=== PATIENT | male | born 1960 | race Caucasian/White ===

== ENCOUNTER → 2016-06-25 | Day surgery (SDC) | payer OTHER ==
[~2016-06-25] MED LIST: CALCIUM 600 + D1 TAB PO; COMPLETE MULTI1 EAC1 PO; DULCOLAX5 MG PO; FISH OIL 1,2001 EAC3 PO; FLONASE 0.05% N16 G1; GAS-X125 M1 PO; HYDROXYZINE HCL25 M1 PO; IBUPROFEN PO; LIPITOR20 MG PO; MIRALAX119 GM PO; NEURONTIN300 MG PO; PANTOPRAZOLE SO40 MG; PANTOPRAZOLE SO40 MG PO; PERCOCET 10/3251 TAB PO; SUPER B COMPLEX1 CAP PO; TUMS500 M1 PO
--- NOTE | ~2016-06-25 | OR ---
Unit #: [id number] #: [id number] Patient: ROMULO MICHAEL [id number] [facility]. [place], [place] [address] [id number] MR#: [id number] NAME: ROMULO MICHAEL ROOM: Date of Procedure: 06/25/2016 Admission Date: 06/25/2016 Surgeon: Lamonte Vasquez M.D. : 1960 Attending Physician: Lamotne Vasquez M.D. Primary Care Physician: Darryl Price M.D. OPERATIVE REPORT PREOPERATIVE DIAGNOSES Dysphagia and retrosternal ascending heartburn. PROCEDURES PERFORMED Upper gastrointestinal endoscopy and biopsy as well as upper gastrointestinal endoscopy and a dilation using a TTS balloon. POSTOPERATIVE DIAGNOSES 1. The patient had distal erosive esophagitis. 2. Early esophageal stricture. This was dilated using an 18- to -20 mm TTS balloon. 3. 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 4. A small hiatus hernia. 5. Mild prepyloric antral gastritis. Biopsies were obtained from the antrum for CLOtest. 6. Rest of the examination up to third part of the duodenum was normal. 7. In addition, the patient also noted to have multiple gastric polyps, two of which were removed using biopsy forceps and sent for histology. RECOMMENDATIONS The patient is advised to increase the dose of pantoprazole 40 mg p.o. b.i.d. He will be followed up in the office in 3 months' time. SEDATION USED MAC. DESCRIPTION OF PROCEDURE Following detailed explanation of potential risks and complications of an upper endoscopy, namely perforation, bleeding, and complication related to sedation, the patient was brought to GI lab and laid in the left lateral decubitus position. Lubricated tip of the Olympus video upper endoscope was passed through the bite block into the proximal esophagus under direct vision. The entire esophageal mucosa was examined. The patient was noted to have evidence of distal erosive esophagitis along with a short segment of Benoit esophagus with tongues of columnar mucosa ascending above the gastroesophageal junction. In addition, early esophageal stricture was also noted. The scope was then advanced into the gastric cavity after traversing a small hiatus hernia. Mucosa of the fundus, body, and antrum was examined. The patient was noted to have multiple gastric polyps most likely hyperplastic polyps in the stomach. In addition, mild prepyloric antral erythema was noted indicating antral gastritis. Pylorus was intubated with visualization of the normal duodenal bulb and second and Unit #: [id number] #: [id number] Patient: ROMULO MICHAEL third part of the duodenum. Upon withdrawal and retroflexion, incisura, cardia, and greater curve was examined and biopsy was obtained from the antrum for CLOtest. Two of the polyps were then removed using cold biopsy forceps. The scope was then withdrawn in the distal esophagus. An 18- to -20 mm TTS balloon was passed through the accessory channel of the scope and step-up dilation of the distal esophagus was done. Biopsies were also obtained of the distal esophageal mucosa to look for any evidence of incomplete intestinal metaplasia. The scope was then withdrawn all the way up to pharynx. No additional findings were noted. The patient tolerated the procedure without any postprocedure complications. Dictated by... Stephanie Padilla TD: 06/25/2016 23:36 JOB #: [id number] OPERATIVE REPORT Page 1 of 1 X Lamonte Vasquez MD X PROCEDURE OPERATIVE NOTE
== END | disposition home or self-care (01) ==
LOC: COPS 05:55
DX: K31.7 Polyp of stomach and duodenum (principal); K22.10 Ulcer of esophagus without bleeding; K22.2 Esophageal obstruction; K44.9 Diaphragmatic hernia without obstruction or gangrene; K29.70 Gastritis, unspecified, without bleeding; K21.9 Gastro-esophageal reflux disease without esophagitis; E78.00 Pure hypercholesterolemia, unspecified; Z98.52 Vasectomy status; Z98.890 Other specified postprocedural states; Z79.899 Other long term (current) drug therapy
CPT/HCPCS: 87077; 88305; 88312; J2250